=== PATIENT | male | born 1945 | race African-American/Black ===

== ENCOUNTER 2020-02-05 12:04 | Inpatient (IN) | payer MEDICARE, BC, OTHER ==
[~2020-02-05] VITALS: Ht 172.7 cm; Wt 74.8 kg
[2020-02-05] MEDS ORDERED: KETOROLAC 30MG/ML VIAL IV STA (13:10)
[2020-02-05] MEDS ORDERED: SODIUM CHLORIDE 0.9% 1,000 ML IV ONE ×2 (13:10→15:15)
[2020-02-05] MEDS ORDERED: MAGNESIUM/ALUMINUM HYDROXIDE/SIMETHICONE 30ML UDC PO STA (13:10)
[2020-02-05] MEDS ORDERED: ONDANSETRON HCL 4MG/2ML INJ IV STA ×2 (13:10→15:03)
[2020-02-05 13:28] LABS: BASOPHILS % 0.2 % (0.0-2.0); EOSINOPHILS % 0.3 % (0.0-5.0); HEMATOCRIT. 48.8 % (42.0-52.0); HEMOGLOBIN. 15.6 g/dL (14.0-18.0); LYMPHOCYTES % 14.5 % (20.0-50.0); MEAN CORPUSCULAR HEMOGLOBIN 25.6 pg (28.0-32.0); MEAN PLATELET VOLUME 8.5 fl (7.4-10.4); MONOCYTES % 8.9 % (2.0-8.0); NEUTROPHILS % 76.1 % (40.0-76.0); PLATELET 257 x1000/uL (130-400); RED CELL DISTRIBUTION WIDTH 14.4 % (11.6-14.6)
[2020-02-05 13:34] LABS: CHLORIDE 100 mEq/L (98-107)
[2020-02-05] MEDS ORDERED: MORPHINE SULFATE 4 MG/ML CPJ (NOT FOR IM USE) IV STA (15:03)
[2020-02-05] MEDS ORDERED: VISCOUS LIDOCAINE 2% 15 ML UDC MM PRN (15:15)
[2020-02-05 18:58] VITALS: BP 157/93
[2020-02-05 20:00] VITALS: BP 148/88
[2020-02-05] MEDS ORDERED: MORPHINE SULFATE 2 MG/ML CPJ (NOT FOR IM USE) IV PRN (20:15)
[2020-02-06] VITALS: BP 147/84
[2020-02-06 04:00] VITALS: BP 130/87
[2020-02-06 06:40] LABS: CHLORIDE 105 mEq/L (98-107)
[2020-02-06 07:02] LABS: BASOPHILS % 0.3 % (0.0-2.0); HEMOGLOBIN. 13.4 g/dL (14.0-18.0); LYMPHOCYTES % 11.6 % (20.0-50.0); MEAN CORPUSCULAR HEMOGLOBIN 25.9 pg (28.0-32.0); MEAN CORPUSCULAR VOLUME 79.2 fL (80.0-94.0); MEAN PLATELET VOLUME 8.9 fl (7.4-10.4); MONOCYTES % 12.3 % (2.0-8.0); NEUTROPHILS % 74.8 % (40.0-76.0); PLATELET 221 x1000/uL (130-400); RED BLOOD CELL COUNT 5.17 mill/uL (4.7-6.1); RED CELL DISTRIBUTION WIDTH 14.4 % (11.6-14.6)
[2020-02-06 08:00] VITALS: BP 146/93
[2020-02-06] MEDS ORDERED: PNEUMOCOCCAL 23-VAL P-SAC VAC 0.5 ML IM ONE (08:00)
[2020-02-06 08:21] LABS: CLARITY URINE CLEAR (CLEAR); COLOR URINE DK YELLOW (YELLOW); KETONES URINE NEGATIVE (NEGATIVE); LEUKOCYTE ESTERASE URINE NEGATIVE (NEGATIVE); NITRITE URINE NEGATIVE (NEGATIVE); OCCULT BLOOD URINE NEGATIVE (NEGATIVE); PROTEIN URINE TRACE (NEGATIVE)
[2020-02-06] MEDS ORDERED: INFLUENZA VIRUS VACCINE(AFLURIA) 0.5ML SYR IM ONE (10:00)
[2020-02-06] MEDS: ONDANSETRON HCL 4MG/2ML INJ IV PRN ×2 (10:14→20:03)
[2020-02-06 12:00] VITALS: BP 150/96
[2020-02-06] MEDS ORDERED: MORPHINE SULFATE 2 MG/ML CPJ (NOT FOR IM USE) IV SCH (13:00)
[2020-02-06 16:00] VITALS: BP 145/92
[2020-02-06] MEDS ORDERED: MORPHINE SULFATE 2 MG/ML CPJ (NOT FOR IM USE) IV PRN (17:00)
[2020-02-06 20:00] VITALS: BP 144/102
[2020-02-06] MEDS: DEXT 5%/0.9% NACL 1,000 ML IV SCH (20:05)
[2020-02-07] VITALS: BP 158/84
[2020-02-07] MEDS: ONDANSETRON HCL 4MG/2ML INJ IV PRN ×2 (00:35→08:58)
[2020-02-07 04:00] VITALS: BP 147/88
[2020-02-07 08:00] VITALS: BP 132/75
[2020-02-07] MEDS: DEXT 5%/0.9% NACL 1,000 ML IV SCH ×2 (09:04→21:07)
[2020-02-07] MEDS ORDERED: DIATR MEGLU/DIATRIZOATE SOLN 120ML ONE (09:18)
[2020-02-07 12:00] VITALS: BP 123/93
[2020-02-07] MEDS ORDERED: PHENOL/SODIUM PHENOLATE 1.4% SRPAY 177ML MM PRN (13:00)
[2020-02-07 16:00] VITALS: BP 135/87
[2020-02-07 20:00] VITALS: BP 122/77
[2020-02-08] VITALS (11 sets, daily range): BP systolic 86–120; BP diastolic 52–80
[2020-02-08] MEDS ORDERED: BUPIVACAINE HCL 0.5% (5MG/ML) 50ML ONE (07:32)
[2020-02-08] MEDS ORDERED: PROPOFOL 200MG/20ML VIAL IV ONE (07:36)
[2020-02-08] MEDS ORDERED: FENTANYL CITRATE/PF 50MCG/ML 5ML VIAL ONE (07:37)
[2020-02-08] MEDS ORDERED: ROCURONIUM BROMIDE 10MG/ML VIAL 5ML IV ONE (07:42)
[2020-02-08] MEDS ORDERED: SUCCINYLCHOLINE CHLORIDE 200MG/10ML IV ONE (07:43)
[2020-02-08] MEDS ORDERED: ACETAMINOPHEN 650MG SUPP PR PRN (07:45)
[2020-02-08] MEDS ORDERED: MORPHINE SULFATE 4 MG/ML CPJ (NOT FOR IM USE) IV PRN (07:45)
[2020-02-08] MEDS ORDERED: ONDANSETRON HCL 4MG/2ML INJ IV PRN ×2 (07:45→09:45)
[2020-02-08] MEDS ORDERED: PHENYLEPHRINE HCL 10 MG/ML 1ML (IV VIAL) IV ONE (08:22)
[2020-02-08] MEDS ORDERED: ALBUMIN HUMAN 12.5G/250ML (5%) IV ONE (08:50)
[2020-02-08] MEDS ORDERED: BACITRACIN 50,000 UNITS/VIAL ONE ×2 (08:59→09:03)
[2020-02-08] MEDS: FAMOTIDINE 20MG/2ML VIAL IV SCH ×2 (09:00→21:24)
[2020-02-08] MEDS ORDERED: DEXT 5%/0.45% NACL KCL 20MEQ/L 1,000 ML IV SCH (09:00)
[2020-02-08] MEDS ORDERED: GLYCOPYRROLATE 0.2 MG/ML 2ML VIAL ONE (09:11)
[2020-02-08] MEDS ORDERED: NEOSTIGMINE METHYLSULFATE 1MG/ML 10 ML VIAL ONE (09:11)
[2020-02-08] MEDS ORDERED: ONDANSETRON HCL 4MG/2ML INJ ONE (09:19)
[2020-02-08] MEDS ORDERED: LIDOCAINE HCL/PF 1% 10 MG/ML 5ML VIAL ONE (09:19)
[2020-02-08] MEDS ORDERED: METOCLOPRAMIDE HCL 10MG/2ML VIAL IV NR (09:45)
[2020-02-08] MEDS ORDERED: HYDROMORPHONE HCL/PF 2MG/ML CPJ IV PRN (09:45)
[2020-02-08] MEDS ORDERED: HYDRALAZINE 20MG/ML VIAL IV PRN (09:45)
[2020-02-08] MEDS ORDERED: AMIODARONE HCL 150 MG in DEXT 5% WATER 100 ML IV NR (12:15)
[2020-02-08] MEDS ORDERED: ALBUMIN HUMAN 25GM/500ML (5%) IV NR (12:30)
[2020-02-08 12:32] LABS: BG BASE EXCESS 2.1 mmol/L (-2.0-2.0); BG CARBOXYHEMOGLOBIN 0.3 % (0.5-1.5); BG DEOXYHEMOGLOBIN 4.5 % (0.0-5.0); BG FRACTION INSPIRED OXYGEN 40; BG HCO3 ACT 27.4 mmol/L (22.0-26.0); BG METHEMOGLOBIN 0.4 % (0.0-1.5); BG OXYGEN SATURATION 95.5 % (92.0-98.5); BG OXYHEMOGLOBIN 94.8 % (94.0-97.0); BG PCO2 45.3 mmHg (35.0-45.0); BG SAMPLE SITE RIGHT RADIAL; BG TOTAL HEMOGLOBIN 13.2 g/dL (12.0-18.0); BG VENT MODE NASAL CANNULA
[2020-02-08 12:51] LABS: HEMATOCRIT. 39.2 % (42.0-52.0); HEMOGLOBIN. 12.6 g/dL (14.0-18.0); MEAN CORPUSCULAR HEMOGLOBIN 25.3 pg (28.0-32.0); MEAN CORPUSCULAR VOLUME 78.6 fL (80.0-94.0); MEAN PLATELET VOLUME 8.2 fl (7.4-10.4); PLATELET 163 x1000/uL (130-400); RED BLOOD CELL COUNT 4.99 mill/uL (4.7-6.1); RED CELL DISTRIBUTION WIDTH 13.9 % (11.6-14.6)
[2020-02-08] MEDS: AMIODARONE HCL 900 MG in DEXT 5% WATER 482 ML IV SCH (13:15)
[2020-02-08 16:29] LABS: PLATELET ESTIMATE NORMAL
[2020-02-08] MEDS ORDERED: ALBUMIN HUMAN 25GM/500ML (5%) IV PRN (17:00)
[2020-02-08] MEDS: SODIUM CHLORIDE 0.45% 1,000 ML IV SCH (22:08)
[2020-02-08] MEDS ORDERED: KCL 20MEQ/100ML PREMIX 100 ML IV NR (23:30)
[2020-02-09] VITALS (47 sets, daily range): BP systolic 82–137; BP diastolic 46–76
[2020-02-09] MEDS: CEFTRIAXONE 1 G PREMIX 50 ML IV SCH ×2 (00:14→21:11)
[2020-02-09] MEDS: SODIUM CHLORIDE 0.45% 1,000 ML IV SCH (03:19)
[2020-02-09] MEDS ORDERED: DOPAMINE 400MG/250ML PREMIX 250 ML IV PRN (04:00)
[2020-02-09 05:46] LABS: HEMATOCRIT. 35.1 % (42.0-52.0); HEMOGLOBIN. 11.3 g/dL (14.0-18.0); MEAN CORPUSCULAR HEMOGLOBIN 25.1 pg (28.0-32.0); MEAN CORPUSCULAR VOLUME 78.5 fL (80.0-94.0); MEAN PLATELET VOLUME 9.7 fl (7.4-10.4); PLATELET 101 x1000/uL (130-400); RED BLOOD CELL COUNT 4.48 mill/uL (4.7-6.1); RED CELL DISTRIBUTION WIDTH 13.7 % (11.6-14.6)
[2020-02-09] MEDS ORDERED: ALBUMIN HUMAN 25GM/500ML (5%) IV ONE (07:45)
[2020-02-09] MEDS ORDERED: SODIUM CHLORIDE 0.9% 500 ML IV ONE (08:30)
[2020-02-09] MEDS: FAMOTIDINE 20MG/2ML VIAL IV SCH ×2 (08:40→21:09)
[2020-02-09 10:09] LABS: PLATELET ESTIMATE SLIGHTLY DECREASED
[2020-02-09] MEDS: DEXT 5%/0.45% NACL 1000ML 1,000 ML IV SCH ×2 (11:20→19:16)
[2020-02-09] MEDS: MORPHINE SULFATE 2 MG/ML CPJ (NOT FOR IM USE) IV PRN (12:55)
[2020-02-09] MEDS: AMIODARONE HCL 900 MG in DEXT 5% WATER 482 ML IV SCH (15:32)
[2020-02-09] MEDS: DOBUTAMINE 250MG PREMIX 250 ML IV SCH ×2 (15:33→21:09)
[2020-02-10] VITALS (46 sets, daily range): BP systolic 99–154; BP diastolic 60–88
[2020-02-10] MEDS: MORPHINE SULFATE 2 MG/ML CPJ (NOT FOR IM USE) IV PRN ×2 (01:20→21:06)
[2020-02-10] MEDS: DEXT 5%/0.45% NACL 1000ML 1,000 ML IV SCH ×2 (02:36→06:50)
[2020-02-10] MEDS: DOBUTAMINE 250MG PREMIX 250 ML IV SCH ×6 (03:04→20:56)
[2020-02-10 05:39] LABS: CHLORIDE 98 mEq/L (98-107)
[2020-02-10 05:51] LABS: PHOSPHORUS 3.6 mg/dL (2.5-4.9)
[2020-02-10 08:41] LABS: HEMATOCRIT. 29.1 % (42.0-52.0); HEMOGLOBIN. 9.5 g/dL (14.0-18.0); MEAN CORPUSCULAR HEMOGLOBIN 25.4 pg (28.0-32.0); MEAN CORPUSCULAR VOLUME 77.8 fL (80.0-94.0); RED BLOOD CELL COUNT 3.74 mill/uL (4.7-6.1)
[2020-02-10] MEDS: DEXT 5%/0.9% NACL 1,000 ML IV SCH ×2 (09:12→20:55)
[2020-02-10] MEDS: FAMOTIDINE 20MG/2ML VIAL IV SCH ×2 (09:12→20:41)
[2020-02-10 09:37] LABS: PARTIAL THROMBOPLASTIN TIME 42.7 sec (23.4-31.0); PROTHROMBIN TIME 10.5 sec (9.6-11.0)
[2020-02-10 09:49] LABS: PLATELET 31 x1000/uL (130-400)
[2020-02-10 09:55] LABS: PLATELET ESTIMATE MARKEDLY DECREASED
[2020-02-10] MEDS ORDERED: LIDOCAINE HCL 1% 20ML VIAL (Pyxis) INJ ONE (09:58)
[2020-02-10] MEDS: CEFTRIAXONE 1 G PREMIX 50 ML IV SCH (20:41)
[2020-02-11] VITALS (47 sets, daily range): BP systolic 120–154; BP diastolic 69–125
[2020-02-11] MEDS: DOBUTAMINE 250MG PREMIX 250 ML IV SCH ×5 (01:58→22:53)
[2020-02-11] MEDS: MORPHINE SULFATE 2 MG/ML CPJ (NOT FOR IM USE) IV PRN ×3 (04:09→21:14)
[2020-02-11 05:56] LABS: HEMATOCRIT. 26.7 % (42.0-52.0); HEMOGLOBIN. 8.9 g/dL (14.0-18.0); MEAN CORPUSCULAR HEMOGLOBIN 25.5 pg (28.0-32.0); MEAN CORPUSCULAR VOLUME 76.4 fL (80.0-94.0); MEAN PLATELET VOLUME 9.8 fl (7.4-10.4); RED CELL DISTRIBUTION WIDTH 13.7 % (11.6-14.6)
[2020-02-11 06:01] LABS: CHLORIDE 100 mEq/L (98-107)
[2020-02-11 06:07] LABS: PHOSPHORUS 3.2 mg/dL (2.5-4.9)
[2020-02-11 06:13] LABS: PLATELET 26 x1000/uL (130-400)
[2020-02-11 07:20] LABS: PLATELET ESTIMATE MARKEDLY DECREASED
[2020-02-11] MEDS: FAMOTIDINE 20MG/2ML VIAL IV SCH ×2 (08:20→21:11)
[2020-02-11] MEDS: DEXT 5%/0.9% NACL 1,000 ML IV SCH ×2 (10:01→22:53)
[2020-02-11] MEDS ORDERED: METRONIDAZOLE IV SCH (10:45)
[2020-02-11] MEDS ORDERED: KCL 20MEQ/100ML PREMIX 100 ML IV NR (12:00)
[2020-02-11] MEDS: METRONIDAZOLE 500 MG PREMIX 100 ML IV SCH (13:54)
[2020-02-11] MEDS ORDERED: VANCOMYCIN 2,000 MG in DEXT 5% WATER 500 ML IV NR (14:00)
[2020-02-11] MEDS: CEFTRIAXONE 1 G PREMIX 50 ML IV SCH (21:11)
[2020-02-12] VITALS (54 sets, daily range): BP systolic 129–166; BP diastolic 70–124
[2020-02-12] MEDS: METRONIDAZOLE 500 MG PREMIX 100 ML IV SCH (00:40)
[2020-02-12] MEDS: MEROPENEM 500 MG in SODIUM CHLORIDE 0.9% 50 ML IV SCH ×3 (03:18→18:36)
[2020-02-12] MEDS: MORPHINE SULFATE 2 MG/ML CPJ (NOT FOR IM USE) IV PRN ×3 (03:24→21:25)
[2020-02-12] MEDS: DOBUTAMINE 250MG PREMIX 250 ML IV SCH ×4 (04:51→21:24)
[2020-02-12 06:59] LABS: HEMATOCRIT. 31.2 % (42.0-52.0); HEMOGLOBIN. 10.2 g/dL (14.0-18.0); MEAN CORPUSCULAR HEMOGLOBIN 25.1 pg (28.0-32.0); MEAN PLATELET VOLUME 10.1 fl (7.4-10.4); RED BLOOD CELL COUNT 4.05 mill/uL (4.7-6.1); RED CELL DISTRIBUTION WIDTH 13.9 % (11.6-14.6)
[2020-02-12 07:47] LABS: PLATELET 31 x1000/uL (130-400)
[2020-02-12] MEDS: FAMOTIDINE 20MG/2ML VIAL IV SCH (10:00)
[2020-02-12] MEDS: DEXT 5%/0.9% NACL 1,000 ML IV SCH (10:02)
[2020-02-12 10:08] LABS: PLATELET ESTIMATE MARKEDLY DECREASED
[2020-02-12] MEDS ORDERED: ZINC SULF/CUSO4 P-HYD/MANG/CR 10 ML VIAL IV SCH ×2 (20:00→21:00)
[2020-02-12] MEDS: THIAMINE HCL 100 MG, FOLIC ACID 1 MG, MVI, ADULT NO.1 10 ML in DEXT 5%/0.9% NACL 1,000 ML IV SCH ×4 (21:24)
[2020-02-13] VITALS (53 sets, daily range): BP systolic 115–172; BP diastolic 47–112
[2020-02-13] MEDS: DOBUTAMINE 250MG PREMIX 250 ML IV SCH ×3 (02:36→13:37)
[2020-02-13] MEDS: MEROPENEM 500 MG in SODIUM CHLORIDE 0.9% 50 ML IV SCH ×3 (02:36→19:31)
[2020-02-13] MEDS: MORPHINE SULFATE 2 MG/ML CPJ (NOT FOR IM USE) IV PRN (02:37)
[2020-02-13 06:40] LABS: HEMATOCRIT. 32.4 % (42.0-52.0); HEMOGLOBIN. 10.7 g/dL (14.0-18.0); MEAN CORPUSCULAR HEMOGLOBIN 25.2 pg (28.0-32.0); MEAN CORPUSCULAR VOLUME 76.4 fL (80.0-94.0); MEAN PLATELET VOLUME 10.3 fl (7.4-10.4); RED BLOOD CELL COUNT 4.24 mill/uL (4.7-6.1); RED CELL DISTRIBUTION WIDTH 14.1 % (11.6-14.6)
[2020-02-13 06:54] LABS: PHOSPHORUS 3.4 mg/dL (2.5-4.9)
[2020-02-13 07:03] LABS: PLATELET 41 x1000/uL (130-400)
[2020-02-13] MEDS: FAMOTIDINE 20MG/2ML VIAL IV SCH (10:20)
[2020-02-13] MEDS: DEXT 5%/0.9% NACL 1,000 ML IV SCH ×2 (10:26→14:46)
[2020-02-13 10:28] LABS: PLATELET ESTIMATE MARKEDLY DECREASED
[2020-02-13] MEDS ORDERED: MORPHINE SULFATE 4 MG/ML CPJ (NOT FOR IM USE) IV PRN (14:45)
[2020-02-13] MEDS: THIAMINE HCL 100 MG, FOLIC ACID 1 MG, MVI, ADULT NO.1 10 ML in DEXT 5%/0.9% NACL 1,000 ML IV SCH ×4 (20:25)
[2020-02-13] MEDS: NITROGLYCERIN OINT 1GM/INCH UDPKT TD PRN (21:57)
[2020-02-14] VITALS (31 sets, daily range): BP systolic 135–170; BP diastolic 76–111
[2020-02-14] MEDS: BLOOD SUGAR DIAGNOSTIC STRIP TEST SCH ×6 (00:23→23:36)
[2020-02-14] MEDS: MEROPENEM 500 MG in SODIUM CHLORIDE 0.9% 50 ML IV SCH (03:06)
[2020-02-14 05:35] LABS: HEMATOCRIT. 33.7 % (42.0-52.0); HEMOGLOBIN. 11.1 g/dL (14.0-18.0); MEAN PLATELET VOLUME 9.7 fl (7.4-10.4); PLATELET 73 x1000/uL (130-400); RED BLOOD CELL COUNT 4.43 mill/uL (4.7-6.1)
[2020-02-14] MEDS: FAMOTIDINE 20MG/2ML VIAL IV SCH (08:48)
[2020-02-14 09:44] LABS: PLATELET ESTIMATE DECREASED
[2020-02-14] MEDS ORDERED: CLONIDINE HCL 0.1MG/24HR PATCH TD SCH (18:00)
[2020-02-14] MEDS: DEXT 5%/0.9% NACL 1,000 ML IV SCH (18:22)
[2020-02-14] MEDS: NITROGLYCERIN OINT 1GM/INCH UDPKT TD PRN (20:20)
[2020-02-14] MEDS: MEROPENEM 500MG in NORMAL SALINE 50ML IV SCH (20:43)
[2020-02-14] MEDS ORDERED: TOTAL PARENTERAL NUTRITION IV SCH (21:00)
[2020-02-14] MEDS ORDERED: NICARDIPINE 50 MG in SODIUM CHLORIDE 0.9% 230 ML IV PRN (23:00)
[2020-02-15] VITALS (38 sets, daily range): BP systolic 102–166; BP diastolic 29–108
[2020-02-15] MEDS: ACETAMINOPHEN 650MG/20.3ML UDC PO PRN (05:22)
[2020-02-15 05:36] LABS: HEMATOCRIT. 32.2 % (42.0-52.0); HEMOGLOBIN. 10.4 g/dL (14.0-18.0); MEAN CORPUSCULAR HEMOGLOBIN 24.6 pg (28.0-32.0); MEAN CORPUSCULAR VOLUME 76.2 fL (80.0-94.0); MEAN PLATELET VOLUME 9.7 fl (7.4-10.4); PLATELET 131 x1000/uL (130-400); RED BLOOD CELL COUNT 4.23 mill/uL (4.7-6.1)
[2020-02-15] MEDS: BLOOD SUGAR DIAGNOSTIC STRIP TEST SCH ×4 (05:38→18:18)
[2020-02-15 05:52] LABS: PHOSPHORUS 3.8 mg/dL (2.5-4.9)
[2020-02-15] MEDS ORDERED: POTASSIUM CHLORIDE 20MEQ TABLET SR PO SCH (08:00)
[2020-02-15] MEDS ORDERED: HYDRALAZINE 20MG/ML VIAL IV PRN (08:15)
[2020-02-15] MEDS: FAMOTIDINE 20MG/2ML VIAL IV SCH (08:58)
[2020-02-15] MEDS: AMLODIPINE 2.5MG TABLET PO SCH ×2 (08:59→20:41)
[2020-02-15] MEDS ORDERED: PHYTONADIONE 10MG/ML AMP SUBCUT SCH (09:00)
[2020-02-15] MEDS: CARVEDILOL 3.125 MG TABLET PO SCH ×2 (09:00→20:41)
[2020-02-15] MEDS ORDERED: KCL 20MEQ/100ML PREMIX 100 ML IV SCH ×2 (09:00→14:00)
[2020-02-15] MEDS ORDERED: MAGNESIUM 2 G PREMIX 50 ML IV SCH (09:00)
[2020-02-15] MEDS ORDERED: VANCOMYCIN 1250MG in DEXTROSE 5% WATER 250ML IV SCH (10:00)
[2020-02-15 10:44] LABS: PLATELET ESTIMATE NORMAL
[2020-02-15] MEDS: MEROPENEM 500MG in NORMAL SALINE 50ML IV SCH (20:41)
[2020-02-15] MEDS ORDERED: FAT EMULSIONS 500 ML IV SCH (21:00)
[2020-02-16] VITALS (15 sets, daily range): BP systolic 113–163; BP diastolic 71–98
[2020-02-16] MEDS: BLOOD SUGAR DIAGNOSTIC STRIP TEST SCH ×2 (00:12→09:43)
[2020-02-16 06:17] LABS: HEMATOCRIT. 30.4 % (42.0-52.0); MEAN CORPUSCULAR HEMOGLOBIN 25.1 pg (28.0-32.0); MEAN CORPUSCULAR VOLUME 76.4 fL (80.0-94.0); MEAN PLATELET VOLUME 9.5 fl (7.4-10.4); PLATELET 187 x1000/uL (130-400); RED BLOOD CELL COUNT 3.98 mill/uL (4.7-6.1); RED CELL DISTRIBUTION WIDTH 14.2 % (11.6-14.6)
[2020-02-16 06:32] LABS: PHOSPHORUS 3.6 mg/dL (2.5-4.9)
[2020-02-16] MEDS ORDERED: POTASSIUM CHLORIDE 20MEQ/PACKET PO SCH (08:00)
[2020-02-16] MEDS: FAMOTIDINE 20MG/2ML VIAL IV SCH (08:55)
[2020-02-16] MEDS: CARVEDILOL 6.25 MG TABLET PO SCH ×2 (08:55→21:49)
[2020-02-16] MEDS ORDERED: MAGNESIUM 2 G PREMIX 50 ML IV SCH (10:00)
[2020-02-16 10:04] LABS: PLATELET ESTIMATE NORMAL
[2020-02-16] MEDS ORDERED: VANCOMYCIN 1500MG in DEXTROSE 5% WATER 250ML IV SCH (10:30)
[2020-02-16] MEDS: ACETAMINOPHEN 650MG/20.3ML UDC PO PRN ×2 (15:36→23:33)
[2020-02-16] MEDS ORDERED: COR6 PO (20:45)
[2020-02-16] MEDS ORDERED: AMLO2.5T45 PO (20:45)
[2020-02-16] MEDS ORDERED: AMLODIPINE 2.5MG TABLET PO SCH (21:00)
[2020-02-16] MEDS: MEROPENEM 500MG in NORMAL SALINE 50ML IV SCH (23:03)
[2020-02-17] VITALS: BP 152/85
[2020-02-17 04:00] VITALS: BP 133/79
[2020-02-17 06:50] LABS: BASOPHILS % 0.4 % (0.0-2.0); HEMATOCRIT. 30.3 % (42.0-52.0); HEMOGLOBIN. 9.9 g/dL (14.0-18.0); LYMPHOCYTES % 7.9 % (20.0-50.0); MEAN CORPUSCULAR HEMOGLOBIN 25.2 pg (28.0-32.0); MEAN CORPUSCULAR VOLUME 77.4 fL (80.0-94.0); MEAN PLATELET VOLUME 9.7 fl (7.4-10.4); MONOCYTES % 7.1 % (2.0-8.0); NEUTROPHILS % 83.6 % (40.0-76.0); PLATELET 263 x1000/uL (130-400); RED BLOOD CELL COUNT 3.92 mill/uL (4.7-6.1)
[2020-02-17 07:12] LABS: PHOSPHORUS 3.6 mg/dL (2.5-4.9)
[2020-02-17 08:00] VITALS: BP 134/80
[2020-02-17] MEDS ORDERED: POTASSIUM CHLORIDE 20MEQ TABLET SR PO NR (08:30)
[2020-02-17] MEDS: FAMOTIDINE 20MG/2ML VIAL IV SCH (08:51)
[2020-02-17] MEDS: BLOOD SUGAR DIAGNOSTIC STRIP TEST SCH (08:52)
[2020-02-17] MEDS ORDERED: CARVEDILOL 12.5MG TABLET PO SCH (09:00)
[2020-02-17] MEDS: ACETAMINOPHEN 650MG/20.3ML UDC PO PRN (09:04)
[2020-02-17] MEDS ORDERED: MAGNESIUM 4 G PREMIX 100 ML IV NR (10:00)
[2020-02-17 12:00] VITALS: BP 125/88
[2020-02-17] MEDS ORDERED: AMOX250S70 PO (12:06)
[2020-02-17 14:53] VITALS: BP 125/58
[2020-02-17 16:00] VITALS: BP 141/87
[2020-02-17] MEDS ORDERED: HYDRALAZINE 10 MG in SODIUM CHLORIDE 0.9% 49.5 ML IV PRN (17:30)
== END 2020-02-17 17:15 | disposition home health service (06) | DRG 853 ==
LOC: ER 12:04 → 6EST 14:56 → ENRESERV 17:43 → CANRESERV 17:44 → 3WST 02-08 14:12 → CVICU 02-08 23:10 → 6EST 02-16 11:53
PROVIDERS: ADMIT Family Medicine; ATTEND Family Medicine
PROC: 0D9670Z Drainage of Stomach with Drainage Device, Via Natural or Artificial Opening (ICD-10-PCS; 2020-02-06)
PROC: 0DN80ZZ Release Small Intestine, Open Approach (ICD-10-PCS; principal; 2020-02-08)
PROC: 0DB80ZZ Excision of Small Intestine, Open Approach (ICD-10-PCS; 2020-02-08)
PROC: 02HV33Z Insertion of Infusion Device into Superior Vena Cava, Percutaneous Approach (ICD-10-PCS; 2020-02-10)
PROC: B548ZZA Ultrasonography of Superior Vena Cava, Guidance (ICD-10-PCS; 2020-02-10)
PROC: B5181ZA Fluoroscopy of Superior Vena Cava using Low Osmolar Contrast, Guidance (ICD-10-PCS; 2020-02-10)
DX: A41.9 Sepsis, unspecified organism (principal); N17.0 Acute kidney failure with tubular necrosis; J69.0 Pneumonitis due to inhalation of food and vomit; K56.601 Complete intestinal obstruction, unspecified as to cause; K55.9 Vascular disorder of intestine, unspecified; I47.1 Supraventricular tachycardia; I42.9 Cardiomyopathy, unspecified; E86.0 Dehydration; I10 Essential (primary) hypertension; I49.3 Ventricular premature depolarization; D64.9 Anemia, unspecified; D69.6 Thrombocytopenia, unspecified; E87.6 Hypokalemia; G89.29 Other chronic pain; I11.9 Hypertensive heart disease without heart failure; E83.42 Hypomagnesemia; M47.816 Spondylosis without myelopathy or radiculopathy, lumbar region; F17.210 Nicotine dependence, cigarettes, uncomplicated; K57.90 Diverticulosis of intestine, part unspecified, without perforation or abscess without bleeding; Z82.3 Family history of stroke; Z82.49 Family history of ischemic heart disease and other diseases of the circulatory system; Z95.810 Presence of automatic (implantable) cardiac defibrillator; Z80.1 Family history of malignant neoplasm of trachea, bronchus and lung; Z80.3 Family history of malignant neoplasm of breast; Z85.46 Personal history of malignant neoplasm of prostate; Z90.79 Acquired absence of other genital organ(s)
CPT/HCPCS: 36415; 36600; 71045; 74018; 74176; 74250; 76770; 76937; 80048; 80053; 80202; 81003; 82140; 82375; 82805; 82962; 83735; 84100; 84145; 84478; 84484; 85025; 90732; 93005; 93306; 96374; 97116; 97162; 97166; 97530; 99285; C1752; J0282; J0330; J0696; J1170; J1250; J1885; J2185; J2270; J2370; J2405; J2704; J2710; J2765; J3010; J3370; J3411; J3475; J3480; J3490; J7030; J7042; J7060; P9041; Q9963

== ENCOUNTER 2024-02-29 17:02 | Inpatient (IN) | payer MEDICARE, BC, MEDICAID ==
[~2024-02-29] VITALS: Ht 177.8 cm; Wt 65.5 kg
[~2024-02-29 17:02] MED LIST: AMLO2.5T45 PO; ASPI-1497 PO; CARV6.2548 PO; CYAN50009 PO; DOCU-150 PO; ESOM40CA53 PO; FERR30CA PO; ONDA4TAB50 MT; SUCR1TAB30 PO
[2024-02-29] MEDS: LACTATED RINGERS 1,000 ML IV SCH (17:59)
[2024-02-29] MEDS: ONDANSETRON HCL 4MG/2ML INJ IV ONE (17:59)
[2024-02-29] MEDS: MORPHINE SULFATE 4 MG/ML INJ (FOR IV/IM USE) IV ONE (17:59)
[2024-02-29 19:08] LABS: MEAN CORPUSCULAR HEMOGLOBIN 25.6 pg (28.0-32.0); MEAN CORPUSCULAR HGB CONC 31.4 g/dL (31.0-37.0); MEAN CORPUSCULAR VOLUME 81.3 fL (80.0-94.0); MEAN PLATELET VOLUME 7.9 fl (7.4-10.4); PLATELET 281 x1000/uL (130-400); RED BLOOD CELL COUNT 2.21 mill/uL (4.7-6.1); RED CELL DISTRIBUTION WIDTH 17.3 % (11.6-14.6); WHITE BLOOD COUNT 12.3 x1000/uL (4.5-11.0)
[2024-02-29 19:09] LABS: DIFFERENTIAL COMMENT 1
[2024-02-29 19:14] LABS: CHLORIDE 108 mEq/L (98-107); HEMOGLOBIN. 5.7 g/dL (14.0-18.0); POTASSIUM 4.8 mEq/L (3.5-5.1); SODIUM 140 mEq/L (136-145)
[2024-02-29 19:15] LABS: CALCIUM 9.4 mg/dL (8.7-10.4); CARBON DIOXIDE 27 mEq/L (21-32)
[2024-02-29 19:19] LABS: URIC ACID 6.1 mg/dL (3.7-9.2)
[2024-02-29 19:20] LABS: CREATININE 0.9 mg/dL (0.6-1.3); GLUCOSE 95 mg/dL (70-105); UREA NITROGEN BLOOD 38 mg/dL (9-23)
[2024-02-29 19:21] LABS: TROPONIN I HIGH SENSITIVITY 13 ng/L (3.0-53)
[2024-02-29 19:22] LABS: ALANINE AMINOTRANSFERASE 19 IU/L (10-49); ALBUMIN 3.7 g/dL (3.2-4.8); ASPARTATE AMINOTRANSFERASE 74 IU/L (<34); BILIRUBIN TOTAL 0.2 mg/dL (0.1-1.0); PROTEIN TOTAL 6.5 g/dL (6.0-8.3)
[2024-02-29 19:23] LABS: BILIRUBIN DIRECT < 0.1 mg/dL (<=3.0)
[2024-02-29] MEDS ORDERED: PANTOPRAZOLE SODIUM 40 MG/VIAL IV ONE (19:30)
[2024-02-29] MEDS ORDERED: PANTOPRAZOLE 80 MG in SODIUM CHLORIDE 0.9% 100 ML IV SCH (19:30)
[2024-02-29 20:07] LABS: PLATELET ESTIMATE NORMAL
[2024-02-29 20:08] LABS: ANISOCYTOSIS 1+; HYPOCHROMASIA 2+; OVALOCYTES 1+
[2024-02-29] MEDS: PANTOPRAZOLE SODIUM 40 MG/VIAL IV NR (21:42)
[2024-02-29] MEDS: PANTOPRAZOLE 80 MG in SODIUM CHLORIDE 0.9% 100 ML IV SCH (22:02)
[2024-02-29] MEDS: IOHEXOL-300 100 ML BOTTLE ONE (23:32)
[2024-03-01] VITALS (9 sets, daily range): BP systolic 106–131; BP diastolic 68–86; PULSE 67–81; RESP 16–32; TEMP 97.1–98.3
[2024-03-01 04:45] LABS: CHLORIDE 109 mEq/L (98-107); POTASSIUM 4.8 mEq/L (3.5-5.1); SODIUM 141 mEq/L (136-145)
[2024-03-01 04:46] LABS: CALCIUM 9.1 mg/dL (8.7-10.4); CARBON DIOXIDE 28 mEq/L (21-32)
[2024-03-01 04:50] LABS: BASOPHILS % 0.6 % (0.0-2.0); DIFFERENTIAL COMMENT 0; EOSINOPHILS % 0.3 % (0.0-5.0); HEMATOCRIT. 23.8 % (42.0-52.0); HEMOGLOBIN. 7.4 g/dL (14.0-18.0); LYMPHOCYTES % 13.9 % (20.0-50.0); MEAN CORPUSCULAR HEMOGLOBIN 25.9 pg (28.0-32.0); MEAN CORPUSCULAR HGB CONC 31.2 g/dL (31.0-37.0); MEAN PLATELET VOLUME 8.1 fl (7.4-10.4); MONOCYTES % 11.4 % (2.0-8.0); NEUTROPHILS % 73.8 % (40.0-76.0); PLATELET 250 x1000/uL (130-400); RED BLOOD CELL COUNT 2.87 mill/uL (4.7-6.1); WHITE BLOOD COUNT 12.7 x1000/uL (4.5-11.0)
[2024-03-01 04:51] LABS: CREATININE 0.8 mg/dL (0.6-1.3); GLUCOSE 88 mg/dL (70-105); UREA NITROGEN BLOOD 25 mg/dL (9-23)
[2024-03-01 04:53] LABS: ALANINE AMINOTRANSFERASE 16 IU/L (10-49); ALBUMIN 3.6 g/dL (3.2-4.8); ASPARTATE AMINOTRANSFERASE 90 IU/L (<34); BILIRUBIN TOTAL 0.6 mg/dL (0.1-1.0)
[2024-03-01] MEDS ORDERED: MORPHINE SULFATE 2 MG/ML CPJ (NOT FOR IM USE) IV PRN (11:00)
[2024-03-01] MEDS ORDERED: ONDANSETRON HCL 4MG/2ML INJ IV PRN (11:00)
[2024-03-01] MEDS ORDERED: NALOXONE HCL 0.4MG/ML VIAL IV PRN (11:30)
[2024-03-01] MEDS ORDERED: ASPIRIN 81MG TABLET PO SCH (11:30)
[2024-03-01 11:49] LABS: HEPATITIS B SURFACE ANTIGEN NEGATIVE (Negative)
[2024-03-01] MEDS: DEXT 5%/0.9% NACL 1,000 ML IV SCH (11:56)
[2024-03-01 12:10] LABS: HEPATITIS C AB REACTIVE (Pos) (Negative)
[2024-03-01] MEDS: SUCRALFATE 1G TABLET PO SCH (12:51)
[2024-03-01] MEDS: CARVEDILOL 6.25 MG TABLET PO SCH (12:52)
[2024-03-01] MEDS: CEFTRIAXONE 1GM/50ML 50 ML IV SCH (13:01)
[2024-03-02] VITALS (13 sets, daily range): BP systolic 89–128; BP diastolic 58–75; PULSE 61–88; RESP 12–27; TEMP 97.2–98.1
[2024-03-02 06:53] LABS: BASOPHILS % 0.5 % (0.0-2.0); EOSINOPHILS % 0.6 % (0.0-5.0); HEMOGLOBIN. 7.3 g/dL (14.0-18.0); LYMPHOCYTES % 11.3 % (20.0-50.0); MEAN CORPUSCULAR HEMOGLOBIN 27.1 pg (28.0-32.0); MEAN PLATELET VOLUME 8.2 fl (7.4-10.4); MONOCYTES % 11.1 % (2.0-8.0); NEUTROPHILS % 76.5 % (40.0-76.0); PLATELET 256 x1000/uL (130-400); RED BLOOD CELL COUNT 2.69 mill/uL (4.7-6.1); RED CELL DISTRIBUTION WIDTH 17.6 % (11.6-14.6); WHITE BLOOD COUNT 10.2 x1000/uL (4.5-11.0)
[2024-03-02 07:04] LABS: CHLORIDE 106 mEq/L (98-107); POTASSIUM 4.1 mEq/L (3.5-5.1); SODIUM 138 mEq/L (136-145)
[2024-03-02 07:05] LABS: CARBON DIOXIDE 29 mEq/L (21-32)
[2024-03-02 07:10] LABS: CREATININE 0.7 mg/dL (0.6-1.3); GLUCOSE 85 mg/dL (70-105); UREA NITROGEN BLOOD 17 mg/dL (9-23)
[2024-03-02] MEDS: PANTOPRAZOLE SODIUM 40 MG/VIAL IV SCH ×2 (08:38→22:23)
[2024-03-03] VITALS (11 sets, daily range): BP systolic 92–119; BP diastolic 54–92; PULSE 61–95; RESP 13–29; TEMP 97.3–98.3; O2SAT 100
[2024-03-03 06:52] LABS: INR 1.1; PROTHROMBIN TIME 11.8 sec (9.6-11.0)
[2024-03-03 06:58] LABS: BASOPHILS % 0.3 % (0.0-2.0); DIFFERENTIAL COMMENT 0; EOSINOPHILS % 0.5 % (0.0-5.0); HEMATOCRIT. 21.5 % (42.0-52.0); HEMOGLOBIN. 7.1 g/dL (14.0-18.0); LYMPHOCYTES % 12.8 % (20.0-50.0); MEAN CORPUSCULAR HEMOGLOBIN 27.1 pg (28.0-32.0); MEAN PLATELET VOLUME 7.9 fl (7.4-10.4); MONOCYTES % 10.1 % (2.0-8.0); NEUTROPHILS % 76.3 % (40.0-76.0); PLATELET 277 x1000/uL (130-400); RED BLOOD CELL COUNT 2.62 mill/uL (4.7-6.1); RED CELL DISTRIBUTION WIDTH 17.6 % (11.6-14.6); WHITE BLOOD COUNT 8.8 x1000/uL (4.5-11.0)
[2024-03-03 07:06] LABS: CARBON DIOXIDE 27 mEq/L (21-32); CHLORIDE 107 mEq/L (98-107); POTASSIUM 3.9 mEq/L (3.5-5.1); SODIUM 139 mEq/L (136-145)
[2024-03-03 07:07] LABS: CALCIUM 8.8 mg/dL (8.7-10.4)
[2024-03-03 07:11] LABS: IRON 19 ug/dL (65-175)
[2024-03-03 07:12] LABS: CREATININE 0.8 mg/dL (0.6-1.3); GLUCOSE 82 mg/dL (70-105); TOTAL IRON BINDING CAPACITY 172 ug/dl (250-425); UREA NITROGEN BLOOD 12 mg/dL (9-23)
[2024-03-03 07:13] LABS: ALANINE AMINOTRANSFERASE 15 IU/L (10-49)
[2024-03-03 07:14] LABS: ALBUMIN 3.6 g/dL (3.2-4.8); ASPARTATE AMINOTRANSFERASE 63 IU/L (<34); BILIRUBIN DIRECT 0.1 mg/dL (<=3.0); BILIRUBIN TOTAL 0.3 mg/dL (0.1-1.0); PROTEIN TOTAL 6.3 g/dL (6.0-8.3)
[2024-03-03 07:36] LABS: VITAMIN B12 SERUM 723 pg/mL (211-911)
[2024-03-03 07:38] LABS: FERRITIN 66 ng/mL (22-322)
[2024-03-03 07:49] LABS: FOLIC ACID (FOLATE) SERUM 12.32 ng/mL (>5.38)
[2024-03-04 08:13] LABS: ALPHA FETOPROTEIN TUMOR MARKER 2.9 ng/mL (0.0-8.4); CA 19-9 < 2 U/mL (0-35)
== END 2024-03-03 18:50 | disposition home or self-care (01) | DRG 374 ==
LOC: ER 17:02 → 5EST 19:40 → EDBEDREQ 19:49 → EDBEDREQSVC 19:49 → EDBEDREQTM 19:49 → EDBEDREQSVC 03-01 06:54
PROVIDERS: ADMIT Internal Medicine; ATTEND Internal Medicine
PROC: 30233N1 Transfusion of Nonautologous Red Blood Cells into Peripheral Vein, Percutaneous Approach (ICD-10-PCS; principal; 2024-02-29)
DX: C16.9 Malignant neoplasm of stomach, unspecified (principal); K29.51 Unspecified chronic gastritis with bleeding; C77.9 Secondary and unspecified malignant neoplasm of lymph node, unspecified; C78.7 Secondary malignant neoplasm of liver and intrahepatic bile duct; E46 Unspecified protein-calorie malnutrition; E84.9 Cystic fibrosis, unspecified; K21.9 Gastro-esophageal reflux disease without esophagitis; I50.9 Heart failure, unspecified; I11.0 Hypertensive heart disease with heart failure; R62.7 Adult failure to thrive; Z68.20 Body mass index [BMI] 20.0-20.9, adult; D63.0 Anemia in neoplastic disease; I72.3 Aneurysm of iliac artery; Z95.828 Presence of other vascular implants and grafts; Z87.891 Personal history of nicotine dependence; K44.9 Diaphragmatic hernia without obstruction or gangrene; K43.9 Ventral hernia without obstruction or gangrene
CPT/HCPCS: 36415; 71045; 74177; 80048; 80053; 80076; 82105; 82378; 82607; 82728; 82746; 83540; 83550; 84484; 84550; 85025; 85044; 86301; 86705; 86850; 86900; 86920; 87340; 93005; 99291; C9113; J0696; J2270; J2405; J7042; J7050; P9016; Q9967

== ENCOUNTER → 2024-05-14 | Outpatient (CLI) | payer MEDICARE, BC, OTHER ==
[~2024-05-14] MED LIST changes: +BARIUM SULFATE 450ML ORAL SUSP ONE; +IOHEXOL-300 100 ML BOTTLE ONE
== END | disposition home or self-care (01) ==
LOC: CT 07:25
PROVIDERS: ATTEND Internal Medicine Hematology & Oncology
DX: C78.7 Secondary malignant neoplasm of liver and intrahepatic bile duct (principal); K42.9 Umbilical hernia without obstruction or gangrene; C16.2 Malignant neoplasm of body of stomach; D50.0 Iron deficiency anemia secondary to blood loss (chronic)
CPT/HCPCS: 71260; 74177; Q9967

== ENCOUNTER → 2024-11-19 | Outpatient (CLI) | payer MEDICARE, BC ==
[~2024-11-19] MED LIST changes: -DOCU-150 PO; +DOCU-422 PO; -ESOM40CA53 PO; +ESOM40CA65 PO
== END | disposition home or self-care (01) ==
LOC: CT 07:51
PROVIDERS: ATTEND Internal Medicine Hematology & Oncology
DX: C16.2 Malignant neoplasm of body of stomach (principal); D50.0 Iron deficiency anemia secondary to blood loss (chronic); N28.1 Cyst of kidney, acquired; K43.9 Ventral hernia without obstruction or gangrene; I71.9 Aortic aneurysm of unspecified site, without rupture; K56.41 Fecal impaction; C78.7 Secondary malignant neoplasm of liver and intrahepatic bile duct
CPT/HCPCS: 71260; 74177; Q9967